=== PATIENT | male | born 2000 ===

== ENCOUNTER 2023-06-08 20:57 | Emergency (ER) | payer OTHER ==
[~2023-06-08] VITALS: Ht 190.5 cm; Wt 109.1 kg
[2023-06-08] MEDS ORDERED: ONDANSETRON ODT 4 MG TAB PO ONE (21:30)
[2023-06-08] MEDS ORDERED: MAALOX PLUS or MAALOX 30 ML PO ONE (21:30)
[2023-06-08] MEDS ORDERED: HYDROcodone-ACET 10/325MG TAB PO ONE (21:30)
[2023-06-08] MEDS ORDERED: LIDOCAINE VISCOUS 2% 15ML UD PO ONE (21:30)
[2023-06-08 21:41] LABS: Basophils # (auto) 0 10 ^3/uL (0-0.2); Basophils % (auto) 0.2 % (0.0-2.0); Eosinophils # (auto) 0 10 ^3/uL (0-0.8); Eosinophils % (auto) 0.5 % (0.0-7.0); Hematocrit 43.8 % (41.0-53.0); Hemoglobin 14.6 g/dL (13.5-17.5); Lymphocytes # (auto) 2.1 10 ^3/uL (0.4-5.4); Lymphocytes % (auto) 20.2 % (10.0-50.0); Mean Corpuscular Hemoglobin 28.3 pg (28.0-32.0); Mean Corpuscular Hgb Conc. 33.3 g/dL (32.0-36.0); Mean Corpuscular Volume 85.2 fL (80.0-100.0); Monocytes # (auto) 0.7 10 ^3/uL (0-1.3); Monocytes % (auto) 6.1 % (0.0-12.0); Neutrophils # (auto) 7.7 10 ^3/uL (1.6-8.6); Red Blood Cells 5.14 10^6/uL (4.5-5.90); Red Cell Distribution Width 13.4 % (11.8-14.3); White Blood Cell 10.6 10^3/uL (4.4-10.8)
[2023-06-08] MEDS ORDERED: IOHEXOL 300 MG/ML 100ML BOTTLE IJ ONE (21:57)
[2023-06-08 22:04] LABS: Alanine Aminotransferase 10 U/L (7-40); Albumin 5.3 g/dL (3.2-4.8); Alkaline Phosphatase 58 U/L (46-116); Aspartate Aminotransferase 9 U/L (13-40); BUN/Creatinine Ratio 7.3 (10.0-20.0); Bilirubin, Total 0.5 mg/dL (0.2-1.0); Blood Urea Nitrogen 8 mg/dL (9-23); Calcium 9.9 mg/dL (8.7-10.4); Chloride 104 mmol/L (98-107); Glucose 95 mg/dL (74-106); Lipase 47 U/L (12-53); Potassium 3.9 mmol/L (3.5-5.1); Sodium 139 mmol/L (136-145); Total Protein 8.4 g/dL (5.7-8.2)
[2023-06-08 22:06] LABS: Urine Bacteria NONE SEEN /hpf (None Seen); Urine Blood Negative /uL (Negative); Urine Clarity Clear (Clear); Urine Color Colorless (Yellow); Urine Protein, UAD Negative (Negative); Urine Specific Gravity 1.008 (1.001-1.035); Urine Urobilinogen Normal (Negative); Urine WBC 1 /hpf (0 - 3)
[2023-06-08 22:16] LABS: Anion Gap 10 (5-15); Carbon Dioxide 25 mmol/L (20-30)
[2023-06-09 00:05] VITALS: BP 110/80; PULSE 96; RESP 18; TEMP 98.1; O2SAT 100
[2023-06-09] MEDS ORDERED: ZOFR4T PO (01:29)
[2023-06-09] MEDS ORDERED: DICY10CA PO (01:29)
[2023-06-09] MEDS ORDERED: PANT40TA2 PO (01:29)
== END 2023-06-09 02:04 | disposition home or self-care (01) ==
LOC: ER 20:57
DX: R10.11 Right upper quadrant pain (principal); K59.00 Constipation, unspecified
CPT/HCPCS: 36415; 74176; 80053; 81001; 83690; 85025; 99284; Q0162